=== PATIENT | female | born 1985 | race African-American/Black ===

== ENCOUNTER 2023-05-13 16:56 | Emergency (ER) | payer MEDICAID ==
[~2023-05-13] VITALS: Ht 172.7 cm; Wt 102.1 kg
[2023-05-13 17:22] VITALS: BP 123/70; TEMP 98; O2SAT 100
== END 2023-05-13 18:48 | disposition left against medical advice (07) ==
LOC: ER 17:02
DX: R51.9 Headache, unspecified (principal); Z53.21 Procedure and treatment not carried out due to patient leaving prior to being seen by health care provider

== ENCOUNTER 2023-10-08 10:07 | Emergency (ER) | payer MEDICAID ==
[~2023-10-08] VITALS: Ht 172.7 cm; Wt 97.5 kg
[2023-10-08 10:39] VITALS: TEMP 98.7
[2023-10-08] MEDS ORDERED: CEFTRIAXONE 500 MG VIAL ONE (11:59)
[2023-10-08] MEDS ORDERED: LIDOCAINE /MPF 1% VIAL 5 ML VIAL ONE (11:59)
[2023-10-08 12:20] LABS: BASOPHILS # (AUTO) 0.1 K/uL (0.0-0.2); BASOPHILS % (AUTO) 1.2 % (0.0-2.0); EOSINOPHILS # (AUTO) 0.3 K/uL (0.0-0.7); HEMATOCRIT 35 % (33-45); HEMOGLOBIN 11.4 g/dL (11.5-14.8); LYMPHOCYTES # (AUTO) 1.2 K/uL (0.8-4.8); LYMPHOCYTES % (AUTO) 26.1 % (20.0-44.0); MEAN CORPUSCULAR HEMOGLOBIN 29 PG (26.0-33.0); MEAN CORPUSCULAR HGB CONC 32 g/dl (31.0-36.0); MEAN CORPUSCULAR VOLUME 90 fL (82-100); MONOCYTES # (AUTO) 0.4 K/uL (0.1-1.30); MONOCYTES % (AUTO) 7.8 % (2.0-12.0); NEUTROPHILS # (AUTO) 2.7 K/uL (1.8-8.9); NEUTROPHILS % (AUTO) 57.9 % (43.0-81.0); PLATELET COUNT (AUTO) 261 K/uL (150-450); WHITE BLOOD COUNT (AUTO) 4.7 K/uL (4.3-11.0)
[2023-10-08 12:29] LABS: CALCIUM, SERUM 8.3 mg/dL (8.5-10.1); CREATININE 0.8 mg/dL (0.6-1.3); POTASSIUM 3.8 mmol/L (3.5-5.1)
[2023-10-08 12:34] LABS: APPEARANCE,URINE Clear (CLEAR); BILIRUBIN,URINE Negative (NEGATIVE); BLOOD, URINE Negative Ery/uL (NEGATIVE); COLOR,URINE YELLOW (YELLOW); KETONES,URINE Negative (NEGATIVE); LEUKOCYTE ESTERASE ,URINE Negative (NEGATIVE); NITRITE, URINE Negative (NEGATIVE); PH,URINE 5.5 (5.0-8.0); PROTEIN,URINE Negative (NEGATIVE); UGLUCOSE Negative (NEGATIVE); UROBILINOGEN,URINE 0.2 EU/dL (0.2)
[2023-10-08 12:35] LABS: ALBUMIN 3.5 g/dL (3.4-5.0); BILIRUBIN,DIRECT 0.2 mg/dL (0.0-0.2); BILIRUBIN,TOTAL 0.7 mg/dL (0.2-1.0); TOTAL PROTEIN, SERUM 7.4 g/dL (6.4-8.2)
[2023-10-08 12:37] LABS: PREGNANCY TEST URINE QUAL NEGATIVE (NEGATIVE)
[2023-10-08] MEDS ORDERED: IV NS 0.9% 250 ML IV ONE (12:39)
[2023-10-08] MEDS ORDERED: IOHEXOL-300 100 ML VIAL IV ONE (12:39)
[2023-10-08] MEDS ORDERED: IOHEXOL-300 10 ML VIAL IV ONE (12:39)
[2023-10-08] MEDS: DOXYCYCLINE 100 MG in IV D5W 100 ML IV STA (13:00)
[2023-10-08] MEDS ORDERED: DOXY-226 PO (13:23)
[2023-10-08] MEDS ORDERED: METR-147 PO (13:23)
[2023-10-08] MEDS: CEFTRIAXONE 500 MG VIAL IM ONE (15:04)
[2023-10-08] MEDS: FLAGYL/NS RTU 500 MG/100 ML PIGGYBACK IV ONE (15:25)
[2023-10-08 17:24] VITALS: BP 125/70; O2SAT 99
[2023-10-09 08:10] LABS: RAPID PLASMA REAGIN QUAL. Non Reactive (Non Reactive)
[2023-10-09 10:02] LABS: HIV-1 p24 ANTIGEN NON REACTIVE (NONREACTIVE); HIV-1/2 ANTIBODY NON REACTIVE (NONREACTIVE)
[2023-10-10 01:07] LABS: CHLAMYDIA TRACHOMATIS NAA Negative (Negative); NEISSERIA GONORRHOEAE NAA Negative (Negative)
[2023-10-10 16:08] LABS: *HSV 1 DNA PCR Negative (Negative); *HSV 2 DNA PCR Negative (Negative)
== END 2023-10-08 17:15 | disposition home or self-care (01) ==
LOC: ER 10:11
DX: N89.8 Other specified noninflammatory disorders of vagina (principal); R10.30 Lower abdominal pain, unspecified; R30.0 Dysuria; F32.A Depression, unspecified; F12.10 Cannabis abuse, uncomplicated; F43.10 Post-traumatic stress disorder, unspecified; J45.909 Unspecified asthma, uncomplicated; Z60.2 Problems related to living alone
CPT/HCPCS: 99285; 74176; 96365; 96367; 86592; 86593; 96372; 84145; 85025; 80048; 83690; 80076; 84703; 85652; 81003; 36415; 86140; 87529; 87806; 87491; 87591; J3490 ×2; J0696; J7060; J7050; Q9967

== ENCOUNTER 2024-07-20 22:38 | Emergency (ER) | payer MEDICAID ==
[~2024-07-20] VITALS: Ht 172.7 cm; Wt 95.3 kg
[~2024-07-20 22:38] MED LIST: DOXY-226 PO; METR-147 PO
[2024-07-21 01:16] LABS: BASOPHILS # (AUTO) 0.1 K/uL (0.0-0.2); BASOPHILS % (AUTO) 1.3 % (0.0-2.0); EOSINOPHILS # (AUTO) 0.3 K/uL (0.0-0.7); EOSINOPHILS % (AUTO) 5.6 % (0.0-6.0); HEMATOCRIT 31 % (33-45); HEMOGLOBIN 10.7 g/dL (11.5-14.8); LYMPHOCYTES # (AUTO) 1.9 K/uL (0.8-4.8); LYMPHOCYTES % (AUTO) 33.2 % (20.0-44.0); MEAN CORPUSCULAR HEMOGLOBIN 32 PG (26.0-33.0); MEAN CORPUSCULAR HGB CONC 35 g/dl (31.0-36.0); MEAN CORPUSCULAR VOLUME 92 fL (82-100); MONOCYTES # (AUTO) 0.7 K/uL (0.1-1.30); MONOCYTES % (AUTO) 12.8 % (2.0-12.0); NEUTROPHILS # (AUTO) 2.7 K/uL (1.8-8.9); NEUTROPHILS % (AUTO) 47.1 % (43.0-81.0); PLATELET COUNT (AUTO) 253 K/uL (150-450); RED BLOOD CELL COUNT(AUTO) 3.31 MIL/uL (4.0-5.2); WHITE BLOOD COUNT (AUTO) 5.7 K/uL (4.3-11.0)
[2024-07-21 01:39] LABS: ALBUMIN 3.3 g/dL (3.4-5.0); BILIRUBIN,DIRECT 0.2 mg/dL (0.0-0.2); BILIRUBIN,TOTAL 0.5 mg/dL (0.2-1.0); CALCIUM, SERUM 8.4 mg/dL (8.5-10.1); CREATININE 0.9 mg/dL (0.6-1.3); TOTAL PROTEIN, SERUM 6.8 g/dL (6.4-8.2)
[2024-07-21 02:31] LABS: APPEARANCE,URINE CLEAR (CLEAR); BILIRUBIN,URINE NEGATIVE (NEGATIVE); BLOOD, URINE NEGATIVE Ery/uL (NEGATIVE); COLOR,URINE YELLOW (YELLOW); KETONES,URINE NEGATIVE (NEGATIVE); LEUKOCYTE ESTERASE ,URINE NEGATIVE (NEGATIVE); NITRITE, URINE NEGATIVE (NEGATIVE); PROTEIN,URINE NEGATIVE (NEGATIVE); UGLUCOSE NEGATIVE (NEGATIVE); UROBILINOGEN,URINE 0.2 EU/dL (0.2)
[2024-07-21 02:32] LABS: PREGNANCY TEST URINE QUAL NEGATIVE (NEGATIVE)
[2024-07-21] MEDS ORDERED: CIPR500T5 PO (03:15)
[2024-07-21] MEDS ORDERED: CIPROFLOXACIN IV RTU 200 ML IV ONE (03:15)
[2024-07-21] MEDS ORDERED: DOXY-326 PO (03:15)
[2024-07-21] MEDS ORDERED: TYL2T PO (03:15)
[2024-07-21] MEDS: CIPROFLOXACIN IV RTU 200 MG in PREMIX 1 EA IV STA (03:23)
[2024-07-21] MEDS ORDERED: FLUC150T PO (03:31)
[2024-07-21] MEDS ORDERED: FLUCONAZOLE (100 MG) 100 MG TABLET ONE (04:19)
[2024-07-21] MEDS: FLUCONAZOLE (100 MG) 100 MG TABLET PO ONE (04:36)
[2024-07-21] MEDS ORDERED: TRAM50TA2 PO (04:53)
[2024-07-21 04:56] VITALS: BP 125/64; TEMP 98.3; O2SAT 98
[2024-07-21] MEDS ORDERED: METR500T PO (09:07)
[2024-07-21] MEDS ORDERED: ONDA4TAB11 PO (09:07)
[2024-07-21] MEDS ORDERED: DOXY100T2 PO (09:07)
== END 2024-07-21 04:56 | disposition home or self-care (01) ==
LOC: ER 22:45
DX: N76.0 Acute vaginitis (principal); R10.2 Pelvic and perineal pain; J45.909 Unspecified asthma, uncomplicated; Z88.0 Allergy status to penicillin
CPT/HCPCS: 99285; 96365; 76856; 85025; 80048; 80076; 84703; 81003; 36415; A4216; J0744 ×2; A4223

== ENCOUNTER 2024-07-21 08:14 | Emergency (ER) | payer MEDICAID ==
[~2024-07-21] VITALS: Ht 172.7 cm; Wt 103.4 kg
[~2024-07-21 08:14] MED LIST changes: +CIPR500T5 PO; +DOXY-326 PO; +FLUC150T PO; +TRAM50TA2 PO; +TYL2T PO
[2024-07-21] MEDS ORDERED: DOXYCYCLINE HYCLATE (100 MG) 100 MG TABLET ONE (09:03)
[2024-07-21] MEDS ORDERED: CEFTRIAXONE 500 MG VIAL ONE (09:03)
[2024-07-21] MEDS ORDERED: LIDOCAINE 1% INJ 50 ML MDV IJ ONE (09:03)
[2024-07-21] MEDS ORDERED: ONDA4TAB11 PO (09:07)
[2024-07-21] MEDS ORDERED: METR500T PO (09:07)
[2024-07-21] MEDS ORDERED: DOXY100T2 PO (09:07)
[2024-07-21] MEDS: CEFTRIAXONE 500 MG VIAL IM ONE (09:19)
[2024-07-21] MEDS: DOXYCYCLINE HYCLATE (100 MG) 100 MG TABLET PO ONE (09:19)
[2024-07-21 09:54] LABS: PREGNANCY TEST URINE QUAL NEGATIVE (NEGATIVE)
[2024-07-21 10:18] VITALS: BP 118/75; TEMP 97.8; O2SAT 99
== END 2024-07-21 10:18 | disposition home or self-care (01) ==
LOC: ER 08:19
DX: N73.9 Female pelvic inflammatory disease, unspecified (principal); R10.2 Pelvic and perineal pain; N89.8 Other specified noninflammatory disorders of vagina; J45.909 Unspecified asthma, uncomplicated; Z88.0 Allergy status to penicillin
CPT/HCPCS: 99283; 96372; 84703; 87491; 87591; J3490; J0696; A6403

== ENCOUNTER 2024-07-25 23:17 | Emergency (ER) | payer MEDICAID ==
[~2024-07-25] VITALS: Ht 172.7 cm; Wt 104.3 kg
[~2024-07-25 23:17] MED LIST changes: +DOXY100T2 PO; +METR500T PO; +ONDA4TAB11 PO
[2024-07-26 03:01] VITALS: BP 120/69; TEMP 97.8; O2SAT 100
== END 2024-07-26 03:38 | disposition home or self-care (01) ==
LOC: ER 23:21
DX: N76.0 Acute vaginitis (principal); B96.89 Other specified bacterial agents as the cause of diseases classified elsewhere; J45.909 Unspecified asthma, uncomplicated; Z88.0 Allergy status to penicillin